=== PATIENT | male | born 1950 | race Caucasian/White ===

== ENCOUNTER → 2020-10-23 15:15 | Outpatient (CLI) | payer OTHER, SELFPAY ==
--- NOTE | ~2020-10-23 | XR_ITS ---
XR knee RT 2V DATE: 10/23/2020 15:28 INDICATION: Right knee pain TECHNIQUE: Standing AP and lateral views COMPARISON: None FINDINGS: There is moderate tricompartment osteoarthritis most prominent at the patellofemoral joint. No fracture or dislocation, periosteal reaction or bone destruction, radiopaque intra-articular loose body or chondrocalcinosis. Mild suprapatellar knee joint effusion is suggested. Arterial calcifications. Osteopenia. IMPRESSION: Tricompartment osteoarthritic, most prominent at the patellofemoral joint Mild knee joint effusion is suggested Osteopenia Reviewed, dictated and finalized at location A.
== END ==
PROVIDERS: PCP Emergency Medicine; Visit Provider Emergency Medicine
DX: M25.569 Pain in unspecified knee (principal); M17.11 Unilateral primary osteoarthritis, right knee; M25.461 Effusion, right knee; M85.861 Other specified disorders of bone density and structure, right lower leg
CPT/HCPCS: 73560

== ENCOUNTER 2020-11-21 08:00 | Outpatient (CLI) | payer OTHER, SELFPAY ==
[2020-11-21 09:33] LABS: Anion Gap 11 mmol/L (8-16); Blood Urea Nitrogen 15 mg/dL (9-20); Calcium 9.7 mg/dL (8.4-10.2); Carbon Dioxide 26 mmol/L (22-30); Chloride 103 mmol/L (98-107); Estimated Glomerular Filt Rate > 60; Glucose 105 mg/dL (75-110); Potassium 4.1 mmol/L (3.4-5.0); Sodium 140 mmol/L (137-145)
== END 2020-11-21 08:01 | disposition home or self-care (01) ==
LOC: ANHSURGERY 08:03
PROVIDERS: Anesthesiology; PCP Emergency Medicine; Visit Provider Surgery
DX: I10 Essential (primary) hypertension (principal); Z01.812 Encounter for preprocedural laboratory examination
CPT/HCPCS: 36415; 80048

== ENCOUNTER → 2020-11-28 02:15 | Outpatient (CLI) | payer OTHER, SELFPAY ==
[2020-11-29 14:40] LABS: SARS-CoV-2 RNA PCR Negative
== END ==
PROVIDERS: PCP Emergency Medicine; Visit Provider Surgery
DX: Z01.812 Encounter for preprocedural laboratory examination (principal); Z20.822 Contact with and (suspected) exposure to COVID-19
CPT/HCPCS: C9803; U0003; U0005

== ENCOUNTER 2020-12-01 01:51 | Day surgery (SDC) | payer OTHER, SELFPAY ==
[2020-11-13 14:49] VITALS: BMI 26.6
--- NOTE | 2020-11-30 12:19 | WPDANESEPPF ---
Anes - Initial Pre Proc Eval Procedure: Operation Date: 12/01/20 12:00 Proposed Procedures p Left Inguinal Hernia Repair - Alirio Lewis MD Date/Time: 11/30/20 12:19 Surgeon: Alirio Lewis MD Pre Op Diagnosis: left inguinal hernia Patient Data Age: 70 Gender: M Height: 1.75 m Weight: 81.65 kg Allergies Allergy/AdvReac Type Severity Reaction Status Date / Time No Known Allergies Allergy Verified 11/13/20 14:19 Home Medications Medication Instructions Recorded Confirmed Type ascorbic acid (vitamin C) 500 mg 500 mg PO BID 05/17/19 11/13/20 History tablet aspirin 325 mg tablet 325 mg PO DAILY tablet 05/17/19 11/13/20 History fklyqemxvsb-hpaaujgtm-hwc C-Mn 500 1 cap PO BID cap 05/17/19 11/13/20 History mg-400 mg capsule multivitamin 1 tablet PO .Daily with food 05/17/19 11/13/20 History tablet omega 6-abq-pwj-fish oil 100 1 cap PO BID cap 05/17/19 11/13/20 History mg-160 mg-1,000 mg capsule vitamin E 100 unit capsule 200 unit PO DAILY 05/17/19 11/13/20 History losartan 50 mg tablet 50 mg PO DAILY #90 tablet 05/10/20 11/13/20 Rx amlodipine 5 mg tablet See Rx Instructions .ROUTE 08/21/20 11/13/20 Rx .COMPLEX #90 tablet hydrochlorothiazide 25 mg tablet See Rx Instructions .ROUTE 08/21/20 11/13/20 Rx .COMPLEX #90 tablet alendronate 70 mg tablet See Rx Instructions .ROUTE 10/24/20 11/13/20 Rx .COMPLEX #12 tablet tamsulosin 0.4 mg capsule 0.4 mg PO DAILY #90 cap 10/27/20 11/13/20 Rx acetaminophen 500 mg PO BID PRN 11/13/20 11/13/20 History cholecalciferol (vitamin D3) 125 mcg PO DAILY 11/13/20 11/13/20 History magnesium gluconate 500 mg PO DAILY 11/13/20 11/13/20 History melatonin 5 mg PO HS PRN 11/13/20 11/13/20 History simvastatin 20 mg PO HS 11/13/20 11/13/20 History vitamin B complex [B Complex] 1 cap PO DAILY 11/13/20 11/13/20 History Patient hx anesthesia problems: none Family hx anesthesia problems: none [facility] Past Medical History Medical History (Updated 11/13/20 @ 10:24 by Meka Tilley) BPH (benign prostatic hyperplasia) CAD (coronary artery disease) HTN (hypertension) Hyperlipidemia Surgical History Surgical History (Updated 11/30/20 @ 12:19 by Mick Mckeon MD) History of heart bypass surgery S/P CABG (coronary artery bypass graft) S/P cervical discectomy S/P inguinal hernia repair Family History Family History Father Family history of cardiovascular disease, Onset Age: 77 Mother Family history of cardiovascular disease, Onset Age: 84 Unknown Heart disease Hypertension Social History Social History Smoking status: Never smoker Alcohol intake: never Living arrangements: with family Spiritual care concerns: No Anes - Eval Final PreProcedure Day of Procedure 11/30/20 12:19 Patient weight: overweight Heart: regular rate and rhythm Lungs: clear to auscultation and normal air movement Airway: Mallampati scale class II Neurological: alert and oriented Last oral intake: >/= 8 hours ASA classification: III Emergent: no Anesthetic plan: proceed Anesthesia type and monitoring: general GIVS and LMA Informed Consent: The patient's anesthetic plan and its attendant risks and benefits were discussed with the patient/family/POA. Questions were solicited and answers provided to the satisfaction of the patient/family/POA.
--- NOTE | 2020-12-01 06:50 | WPDHPUPDATE1 ---
History and Physical Update Update Date/Time: 12/01/20 06:50 History and Physical has been reviewed, including an updated exam of the patient. There are NO changes in the patient's condition. Risks, benefits, and alternatives have been discussed and questions answered. Patient agrees to proceed with procedure.
[2020-12-01 10:07] VITALS: BP 145/72; PULSE 59; RESP 18; TEMP 36.5; O2SAT 100
[2020-12-01] MEDS: KETOROLAC 15 MG/ML VIAL (*BKC) IV PUSH (10:57)
[2020-12-01] MEDS: LACTATED RINGERS 1,000 ML 30 ML IV CONT (10:57)
[2020-12-01] MEDS: ACETAMINOPHEN 500 MG TABLET 1000 MG PO (10:57)
[2020-12-01] MEDS: ceFAZolin 2 GM/D5W 50 ML 2 GM/50 ML BAG IVPB (11:05)
[2020-12-01] MEDS: BUPIVACAINE/EPINEPHRINE 0.5% 10 ML VIAL 30 ML INFILTRATE (11:05)
[2020-12-01 12:27] VITALS: BP 133/56; PULSE 62; RESP 14; O2SAT 98
[2020-12-01 12:55] VITALS: BP 118/52; PULSE 63; RESP 14
--- NOTE | 2020-12-01 12:59 | W.PM.PROC2 ---
Procedure Note - Detailed Date of Procedure 12/01/20 Pre-op Diagnosis left inguinal hernia Post-op Diagnosis same Procedure Performed Left inguinal hernia repair with 8 cm Parietex hernia mesh system Surgeon Alirio Lewis MD Independent Insurance Adjuster Bharati IBRAHIM, Misty IBRAHIM Anesthesia general (G IV S) and local (0.5% Marcaine with epinephrine) Indications Patient is a 70-year-old man who had a previous right inguinal hernia repair. He developed pain and a bulge in the left groin. He was noted to have a left inguinal hernia and is taken to surgery now for repair. Findings Showed a large direct inguinal hernia defect. Nearly the entire inguinal canal floor was involved in the hernia. Description of Procedure Patient was taken to surgery and IV sedation was administered. The left groin and genitalia were prepped and draped. The proposed incision was marked on the skin. Local was infiltrated into the skin and the deeper subcutaneous tissues. 0.5% Marcaine with epinephrine local was used. Incision was made dissection was carried down through the subcutaneous and through Micaela's fascia. Dissection was continued down to the external oblique aponeurosis. The aponeurosis and the external ring were exposed. Local was infiltrated deep to the aponeurosis in the area of the inguinal canal and spermatic cord. The aponeurosis was then opened laterally and extended medially through the external ring. Care was taken not to injure the ilioinguinal nerve which was left attached to the cord throughout the surgery. We mobilized the spermatic cord medially with a Vinod drain. The hernia was found and was carefully dissected free from the spermatic cord. Once it was completely freed from the cord, it was dissected circumferentially so that it was free of any other tissues in the inguinal canal. It was a very large defect, it occupied literally the entire direct space. I then scored circumferentially around the neck of the hernia through the transversalis fascia. This was about a cm from the origin of the hernia. I then dunked the hernia defect into the retroperitoneum. An 8 cm Parietex shingle springs was chosen. It was full to deform a plug. It was placed in the defect. The edges were sutured to the transversalis fascia with interrupted 3 0 Vicryl suture. Since the hernia was quite wide, I then went ahead and with 0 Ethibond interrupted sutures closed each edge of the transversalis fascia to the opposite side. Each of these sutures included the hernia mesh. This basically reconstructed the inguinal canal floor. I then cut the patch to the appropriate size and placed it over the inguinal canal floor. The lateral leaves were passed beyond the cord. I laid the cord and ileoinguinal nerve over the patch. The external oblique aponeurosis was then closed with interrupted 3 0 Vicryl suture. Micaela's fascia was closed with interrupted 3 0 Vicryl suture. The superficial subcutaneous was closed with 4 O Vicryl suture. The skin was loosely approximated with subcuticular interrupted 4 0 Vicryl suture. Finally the skin was closed with a running 4 0 Monocryl skin suture. Wound was dressed with Exofin surgical adhesive. The patient was awakened and taken to recovery in good condition. Estimated blood loss was 5 cc. Sponge and needle counts were correct x2. There were no complications. Implants 8 cm Parietex hernia mesh system Estimated Blood Loss 5 Drains No Packing No Pathology none sent Complications None Condition stable Disposition same day
[2020-12-01 13:15] VITALS: BP 144/72; PULSE 56; RESP 15
--- NOTE | 2020-12-01 13:34 | SUR.PHASEII ---
DR. HERNANDEZ IN TO SPEAK TO PATIENT AND SPOUSE. PT ABLE TO WALK WITHOUT DIFFICULTY.
== END 2020-12-01 13:36 | disposition home or self-care (01) ==
PROVIDERS: PCP Emergency Medicine; Visit Provider Surgery
PROC: (CPT 49505; principal; 2020-12-01 12:00)
DX: K40.90 Unilateral inguinal hernia, without obstruction or gangrene, not specified as recurrent (principal); Z79.82 Long term (current) use of aspirin; N40.0 Benign prostatic hyperplasia without lower urinary tract symptoms; I25.10 Atherosclerotic heart disease of native coronary artery without angina pectoris; E78.5 Hyperlipidemia, unspecified; Z95.1 Presence of aortocoronary bypass graft
CPT/HCPCS: 49505; 36415; 80048; A9270; C1781; C9803; J0690; J1885; J2704; J3010; J7120; U0003; U0005

== ENCOUNTER → 2021-04-03 09:32 | Outpatient (CLI) | payer OTHER, SELFPAY ==
--- NOTE | ~2021-04-03 | XR_ITS ---
EXAMINATION: XR shoulder LT min 2V DATE: 04/03/2021 09:46 INDICATION: Left shoulder pain. TECHNIQUE: 4 views of left shoulder were obtained. COMPARISON: None. FINDINGS: Bone alignment is normal. No fracture. There is mild osteoarthritis of glenohumeral joint a nd severe osteoarthritis of acromioclavicular joint. A calcified left lung nodule is consistent with old granulomatous disease. Median sternotomy wires and mediastinal surgical clips are seen, likely fr om prior coronary artery bypass grafting. IMPRESSION: 1. Polyarticular osteoarthritis. Reviewed, dictated and finalized at location A.
== END ==
PROVIDERS: PCP Emergency Medicine; Visit Provider Emergency Medicine
DX: M19.012 Primary osteoarthritis, left shoulder (principal)
CPT/HCPCS: 73030

== ENCOUNTER → 2022-04-19 09:42 | Outpatient (CLI) | payer OTHER, SELFPAY ==
--- NOTE | ~2022-04-19 | XR_ITS ---
EXAMINATION: XR elbow RT 2V INDICATION: Right elbow pain TECHNIQUE: Two views of the right elbow were obtained. COMPARISON: None available FINDINGS: No fracture, dislocation, or subluxation. The bones, soft tissues, and joint spaces are nor mal. IMPRESSION: 1. No acute osseous abnormality. Reviewed, dictated and finalized at location B. AL ASSOCIATE
== END ==
PROVIDERS: PCP Emergency Medicine; Visit Provider Emergency Medicine
DX: M25.521 Pain in right elbow (principal)
CPT/HCPCS: 73070

== ENCOUNTER 2022-05-07 01:41 | Day surgery (SDC) | payer OTHER, SELFPAY ==
[2022-03-14 13:45] VITALS: BMI 23.7
--- NOTE | 2022-03-31 09:17 | SUR.PREOP ---
PATIENT CALLED AT 917 AND INFORMED HIS CASE WOULD BE CANCELLED DUE TO DOCTOR'S AVAILABILITY. PATIENT VOICED UNDERSTANDING. INFORMED PATIENT TO NOT TAKE PREP AND THE OFFICE WOULD REACH OUT TOMORROW TO RESCHEDULE PATIENT.
[2022-05-07 06:23] VITALS: BP 123/66; PULSE 58; RESP 16; TEMP 36.3; O2SAT 98; BMI 25.2
[2022-05-07] MEDS: LACTATED RINGERS 1,000 ML 150 ML IV CONT (06:35)
--- NOTE | 2022-05-07 07:05 | WPDANESEPPF ---
Anes - Initial Pre Proc Eval Procedure: Operation Date: 05/07/22 07:30 Proposed Procedures p Screening Colonoscopy - Jeff Thapa MD Date/Time: 05/07/22 07:05 Surgeon: Jeff Thapa MD Pre Op Diagnosis: neoplasm screening Patient Data Age: 71 Gender: M Height: 1.78 m Weight: 80 kg Last Vital Signs Temp 36.3 C L 05/07/22 06:23 Pulse 58 L 05/07/22 06:23 Resp 16 05/07/22 06:23 BP 123/66 05/07/22 06:23 Pulse Ox 98 05/07/22 06:23 O2 Del Method Room Air 05/07/22 06:23 Allergies Allergy/AdvReac Type Severity Reaction Status Date / Time No Known Allergies Allergy Verified 05/07/22 06:20 Home Medications Medication Instructions Recorded Confirmed Type ascorbic acid (vitamin C) 500 mg 500 mg PO BID 05/17/19 05/07/22 History tablet (Vitamin C) aspirin 325 mg tablet 325 mg PO DAILY 05/17/19 05/07/22 History evzlmumdiyk-afympcpni-jqx C-Mn 500 1 cap PO BID 05/17/19 05/07/22 History mg-400 mg capsule (Glucosamine Chondroitin Maximum Strength) multivitamin 1 tablet PO .Daily with food 05/17/19 05/07/22 History omega 7-ciw-zrf-fish oil 100 1 cap PO BID 05/17/19 05/07/22 History mg-160 mg-1,000 mg capsule (Fish Oil) vitamin E 100 unit capsule 200 unit PO DAILY 05/17/19 05/07/22 History cholecalciferol (vitamin D3) 125 125 mcg PO DAILY 11/13/20 05/07/22 History mcg (5,000 unit) tablet magnesium gluconate 500 mg tablet 500 mg PO DAILY 11/13/20 05/07/22 History melatonin 5 mg tablet 5 mg PO HS PRN Insomnia 11/13/20 05/07/22 History vitamin B complex 1 cap PO DAILY 11/13/20 05/07/22 History amlodipine 5 mg tablet See Rx Instructions .Route 08/13/21 05/07/22 Rx .COMPLEX #90 tabs hydrochlorothiazide 25 mg tablet See Rx Instructions .Route 08/13/21 05/07/22 Rx .COMPLEX #90 tabs losartan 50 mg tablet 50 mg PO DAILY #90 tabs 08/27/21 05/07/22 Rx alendronate 70 mg tablet See Rx Instructions .Route 08/31/21 05/07/22 Rx .COMPLEX #12 tabs simvastatin 20 mg tablet 20 mg PO HS #90 tabs 02/06/22 05/07/22 Rx tamsulosin 0.4 mg capsule (Flomax) 0.4 mg PO DAILY #90 caps 04/12/22 05/07/22 Rx Patient hx anesthesia problems: none Family hx anesthesia problems: none Results Review: All pre-operative results and documents have been reviewed as part of the pre-operative evaluation. 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) Hernia of anterior abdominal wall HTN (hypertension) Hyperglycemia Hyperlipidemia Skin lesion Unilateral recurrent inguinal hernia without obstruction or gangrene Vitamin D deficiency Surgical History Surgical History History of heart bypass surgery S/P CABG (coronary artery bypass graft) S/P cervical discectomy S/P inguinal hernia repair 12/01/20 Left inguinal hernia repair with 8 cm Parietex hernia mesh system Family History Family History Father Family history of cardiovascular disease, Onset Age: 77 Mother Family history of cardiovascular disease, Onset Age: 84 Unknown Heart disease Hypertension Social History Social History Smoking status: Never smoker Alcohol intake: never Substance use type: does not use Living arrangements: with family Gender identity (if verbalized by the patient): Male Spiritual care concerns: No Anes - Eval Final PreProcedure Day of Procedure 05/07/22 07:05 Patient weight: normal Heart: regular rate and
--- NOTE | 2022-05-07 07:25 | PM.HPGS ---
History of Present Illness History of Present Illness Consent: Risks, benefits, and alternatives have been discussed and questions answered. Patient agrees to proceed with procedure. Chief complaint: neoplasm screening Narrative: Liam Floyd is a 71 year old male here for screening colonoscopy, last one 10 years ago Review of Systems Constitutional: Constitutional: Denies headache(s) and Denies weakness Eyes: Eyes: Denies blurry vision ENT: Reports Normal hearing present, Denies headache(s) and Denies neck pain Cardiovascular: Cardiovascular: Denies chest pain and Denies dyspnea Respiratory: Respiratory: Denies dyspnea Gastrointestinal: Gastrointestinal: Reports no additional gastrointestinal complaints Genitourinary: Genitourinary: Denies dysuria Musculoskeletal: Musculoskeletal: Denies neck pain Integumentary/Breasts: Skin/Breast: Denies dry skin Neurologic: Reports Normal hearing present, Denies headache(s) and Denies weakness Psychiatric: Psychiatric: Denies anxiety Endocrine: Endocrine: Denies change in body appearance Hematologic/Lymphatic: Hematologic/Lymphatic: Denies easy bleeding Allergic/Immunologic: Allergic/Immunologic: Denies urticaria PMF Past Medical History Medical History (Updated 05/07/22 @ 07:25 by Jeff Thapa MD) Anginal pain Back pain at L4-L5 level Body mass index [BMI] 28.0-28.9, adult (11/17/15) Body mass index [BMI] 29.0-29.9, adult (08/27/16) Body mass index [BMI] 30.0-30.9, adult (05/16/15) BPH (benign prostatic hyperplasia) CAD (coronary artery disease) Chest pain Colon cancer screening Compression fracture of L1 lumbar vertebra FERRER (dyspnea on exertion) Hernia of anterior abdominal wall HTN (hypertension) Hyperglycemia Hyperlipidemia Skin lesion Unilateral recurrent inguinal hernia without obstruction or gangrene Vitamin D deficiency Surgical History Surgical History History of heart bypass surgery S/P CABG (coronary artery bypass graft) S/P cervical discectomy S/P inguinal hernia repair 12/01/20 Left inguinal hernia repair with 8 cm Parietex hernia mesh system Family History Family History Father Family history of cardiovascular disease, Onset Age: 77 Mother Family history of cardiovascular disease, Onset Age: 84 Unknown Heart disease Hypertension Social History Social History Smoking status: Never smoker Alcohol intake: never Substance use type: does not use Living arrangements: with family Gender identity (if verbalized by the patient): Male Spiritual care concerns: No Meds Home Medications and Allergies Home Medications Medication Instructions Recorded Confirmed Type ascorbic acid (vitamin C) 500 mg 500 mg PO BID 05/17/19 05/07/22 History tablet (Vitamin C) aspirin 325 mg tablet 325 mg PO DAILY 05/17/19 05/07/22 History ddackhvqxhd-qhzoskpoc-jkw C-Mn 500 1 cap PO BID 05/17/19 05/07/22 History mg-400 mg capsule (Glucosamine Chondroitin Maximum Strength) multivitamin 1 tablet PO .Daily with food 05/17/19 05/07/22 History omega 9-ixo-tnc-fish oil 100 1 cap PO BID 05/17/19 05/07/22 History mg-160 mg-1,000 mg capsule (Fish Oil) vitamin E 100 unit capsule 200 unit PO DAILY 05/17/19 05/07/22 History cholecalciferol (vitamin D3) 125 125 mcg PO DAILY 11/13/20 05/07/22 History mcg (5,000 unit) tablet magnesium gluconate 500 mg tablet 500 mg PO DAILY 11/13/20 05/07/22 History melatonin 5 mg tablet 5 mg PO HS PRN Insomnia 11/13/20 05/07/22 History vitamin B complex 1 cap PO DAILY 11/13/20 05/07/22 History amlodipine 5 mg tablet See Rx Instructions .Route 08/13/21 05/07/22 Rx .COMPLEX #90 tabs hydrochlorothiazide 25 mg tablet See Rx Instructions .Route 08/13/21 05/07/22 Rx .COMPLEX #90 tabs losartan 50 mg
[2022-05-07 07:41] VITALS: BP 105/65; PULSE 63; RESP 17; O2SAT 98
[2022-05-07 07:51] VITALS: BP 118/69; PULSE 62; RESP 16; O2SAT 98
[2022-05-07 08:01] VITALS: BP 128/74; PULSE 62; RESP 17; O2SAT 98
== END 2022-05-07 08:02 | disposition home or self-care (01) ==
PROVIDERS: PCP Emergency Medicine; Visit Provider Internal Medicine Gastroenterology
PROC: 0DJD8ZZ Inspection of Lower Intestinal Tract, Via Natural or Artificial Opening Endoscopic (ICD-10-PCS; CPT 45378; principal; 2022-05-07 07:30)
DX: Z12.11 Encounter for screening for malignant neoplasm of colon (principal); K64.8 Other hemorrhoids; I25.10 Atherosclerotic heart disease of native coronary artery without angina pectoris; I10 Essential (primary) hypertension; E78.5 Hyperlipidemia, unspecified; E55.9 Vitamin D deficiency, unspecified; N40.0 Benign prostatic hyperplasia without lower urinary tract symptoms; Z95.1 Presence of aortocoronary bypass graft; Z79.82 Long term (current) use of aspirin
CPT/HCPCS: G0121; J2704; J7120

== ENCOUNTER → 2023-05-08 10:02 | Outpatient (CLI) | payer OTHER, SELFPAY ==
--- NOTE | ~2023-05-08 | XR_ITS ---
Right Hand Technique: PA and lateral views were obtained. Clinical History: Pain Findings: No acute fracture or dislocation is seen. There is moderate degenerative change at the seco nd and third metacarpophalangeal joints. Soft tissues are unremarkable. Impression: Moderate degenerative change of the second and third metacarpophalangeal joints. Reviewed, dictated and finalized at location . 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
== END ==
PROVIDERS: PCP Emergency Medicine; Visit Provider Emergency Medicine
DX: M19.041 Primary osteoarthritis, right hand (principal)
CPT/HCPCS: 73120

== ENCOUNTER 2024-05-05 12:13 | Outpatient (CLI) | payer OTHER, SELFPAY ==
--- NOTE | ~2024-05-05 | XR_ITS ---
XR hip LT min 2V 05/05/2024 12:24 Indication: Left hip pain Procedure: 2 views left hip Comparison: No prior studies for comparison. Findings: Mild-moderate osteoarthritis of the left hip. No fracture, subluxation or dislocation. No s ignificant soft tissue abnormality. No foreign bodies. Impression: 1: Mild-moderate osteoarthritis of the left hip. Reviewed, dictated and finalized at location B. 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
== END 2024-05-05 12:14 | disposition home or self-care (01) ==
LOC: MICIMG 12:14
PROVIDERS: PCP Emergency Medicine; Visit Provider Emergency Medicine
DX: M16.12 Unilateral primary osteoarthritis, left hip (principal)
CPT/HCPCS: 73502

== ENCOUNTER 2024-10-12 09:51 | Outpatient (CLI) | payer OTHER, SELFPAY ==
--- NOTE | ~2024-10-12 | XR_ITS ---
AP and lateral views of the right hip Clinical history: Pain Findings: No acute fracture or dislocation is seen. Osseous alignment is anatomic. Right hip joint sp yoyn is intact. Soft tissues are unremarkable. Impression: No significant abnormality is seen. Reviewed, dictated and finalized at location . Impression: No significant abnormality is seen.
== END 2024-10-12 09:52 | disposition home or self-care (01) ==
LOC: MICIMG 09:52
PROVIDERS: PCP Emergency Medicine; Visit Provider Emergency Medicine
DX: M25.551 Pain in right hip (principal)
CPT/HCPCS: 73502

== ENCOUNTER 2025-01-27 14:00 | Outpatient (RCR) | payer OTHER, SELFPAY ==
--- NOTE | 2024-12-27 14:37 | OPREHPOC ---
Outpatient Therapy Plan of Care This is a Multidisciplinary Plan of Care that may contain components documented by all disciplines (PT, OT, and ST.) PT Problem 1 PT Problem #1 Knowledge Deficit PT Goal 1 Goal / Goal Update 1* independent with HEP 2* correct body mechanics with lifting from the floor Target Visit 8 PT Problem 2 PT Problem #2 Pain PT Goal 1 Goal / Goal Update 1* pt report pain rating at worst of 4/10 2* radicular pain to bilateral lateral hips at worst 3* pt report sit to stand without pain increase Target Visit 8 PT Problem 3 PT Problem #3 Impaired Flexibility PT Goal 1 Goal / Goal Update increase flexibility to decrease the pull on hips and lumbar spine: hamstring length with supine SLR to 60' 1* R 2* L anterior hip-quad length with prone knee flexion 3* R 105' 4* L 120' 5* in long sitting position R knee extension 0' Target Visit 8 PT Problem 4 PT Problem #4 Impaired Strength PT Goal 1 Goal / Goal Update 1improve strength of bilateral hip extension and abduction to 4+/5 single leg standing x 10 seconds with good stability: 2* R 3* L Target Visit 8
--- NOTE | 2024-12-27 14:38 | PTOPEVAL1 ---
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; active lifestyle; walk 2 + miles/day; light running with dog training; weight training for arms and legs & cardio s/p cardiac rehab Reported Pain Level Pain Score 0: Self Report Additional Pain Score Comments pain range in the past week 0-7/10; radicular R and L lateral thigh to mid thigh increase pain: driving, sit to stand transfer; when first wake up in AM decrease pain: change positions, stretch hip, over the counter meds/tylenol, advil sleeping pain with changing positions, about 2 x/ night Assessment PT Clinical Summary Liam has the diagnosis of lumbar radiculopathy, trochanteric bursitis bilateral. He has a chronic history of back pain, with 2018 MRI report stating changes and recent hip xray report states mild to moderate changes. 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 Self assessment with Back Index rating of 34% limitation in activity level. He has received chiropractor care for back pain and continues to go 1x/month, but has never had PT treatments. Medical history includes: R knee arthritis, bilateral inguinal hernia surgery and HTN, CABG. With the evaluation: he has tightness of anterior hip-quad, piriformis, hamstrings and hip IR; R knee extension is (-5'), imbalance of R hip tighter than L; standing with R hip and knee slightly flexed with spinal change of position. Skilled PT services are indicated for modalities PRN for pain control; therapeutic exercises to increase flexibility and strength of hips, with education for HEP, body mechanics. Plan of Care Interventions Electrical Stimulation,Hot Pack/Cold Pack,Manual Therapy,Neuro Re-education,Patient/Caregiver Education,Therapeutic Activities,Therapeutic Exercise,Ultrasound,Other Other Interventions taping PT Services Indicated Yes Treatment Frequency and 1-2x/wk for 8 visitis Duration These treatments will address the objective and functional deficits as defined above. The patient will be advanced safely and appropriately in order for the patient to progress towards his/her prior level of function. Additional exercises will be introduced and as well as a comprehensive home exercise program upon discharge, if needed, ?to ensure carryover of functional gains achieved in the clinic. This treatment plan has been reviewed and agreement upon by the patient.
--- NOTE | 2025-01-27 14:52 | OPREHPOC ---
Outpatient Therapy Plan of Care This is a Multidisciplinary Plan of Care that may contain components documented by all disciplines (PT, OT, and ST.) PT Problem 1 PT Problem #1 Knowledge Deficit PT Goal 1 Goal / Goal Update 1* independent with HEP 2* correct body mechanics with lifting from the floor 01-27-25 d/c goal met Target Visit 8 Progress Met PT Problem 2 PT Problem #2 Pain PT Goal 1 Goal / Goal Update 1* pt report pain rating at worst of 4/10 2* radicular pain to bilateral lateral hips at worst 3* pt report sit to stand without pain increase 01-27-25 d/c goal 1 met; #2 met for R LE; #3 has pain with sit to stand Target Visit 8 Progress Partially Met PT Problem 3 PT Problem #3 Impaired Flexibility PT Goal 1 Goal / Goal Update increase flexibility to decrease the pull on hips and lumbar spine: hamstring length with supine SLR to 60' 1* R 2* L anterior hip-quad length with prone knee flexion 3* R 105' 4* L 120' 5* in long sitting position R knee extension 0' 01-27-25 d/c goal 2,3,5 met Target Visit 8 Progress Partially Met PT Problem 4 PT Problem #4 Impaired Strength PT Goal 1 Goal / Goal Update 1improve strength of bilateral hip extension and abduction to 4+/5 single leg standing x 10 seconds with good stability: 2* R 3* L 01-27-25 d/c goals not met Target Visit 8 Progress Not Met
--- NOTE | 2025-01-27 14:52 | PTOPDC ---
Assessment and note entered by Marjorie Young, PT Assessment Status Discharge ICD-10 Condition Codes (PT) Radiculopathy, lumbar region M54.16,Pain in right hip M25.551,Pain in left hip M25.552 Onset March 2024 Subjective Information feel like doing marginally better, not sure my hips are that much better; have been doing the exercises; ready to be finished with PT; will call dr and set up a follow up appointment. Reported Pain Level Pain Score Self Report Additional Pain Score Comments pain range in the past week 0-4/10; L lateral hip and into lateral thigh to above knee- intermittent increase pain: sit to stand, stairs, driving over 45 minutes decrease pain: walk, change positions sleeping- no awakening due to pain is doing everything he needs to do, but needs to change positions and rest sometimes Assessment PT Clinical Summary Liam has received 8 PT sessions. Compared to the initial evaluation: pain rating from 0-7/10 to 0-4/10; self assessment with back index rating from 34 to 20% limitation in activity level; reported is not awakening from sleep due to pain; pain is intermittent into L lateral mid thigh/ no radicular pain R LE; pain is increased with sit to stand transfer and sitting in the car and driving over 45 minutes; increase strength of hips, but continues to have weakness L hip abduction and extension; tightness and muscle imbalance over R and L hamstrings and anterior hip -quad muscles. Education completed for HEP and body mechanics/posture. The goals were partially achieved. Discharge PT services. He is to continue with his HEP and follow up with . Plan of Care PT Services Indicated No
== END 2025-01-28 09:33 | disposition home or self-care (01) ==
LOC: ANHPT 14:00
PROVIDERS: PCP Emergency Medicine; Visit Provider Orthopaedic Surgery
DX: M47.816 Spondylosis without myelopathy or radiculopathy, lumbar region (principal)
CPT/HCPCS: 97110; 97140; 97161; 97530

== ENCOUNTER 2025-06-07 07:43 | Outpatient (CLI) | payer OTHER, SELFPAY ==
--- NOTE | ~2025-06-07 | MR_ITS ---
EXAMINATION: MR lumbar spine wo/w con DATE: 06/07/2025 08:37 INDICATION: Spondylosis without myelopathy or radiculopathy. TECHNIQUE: Magnetic resonance imaging (MRI) of the lumbar spine was performed without and with 17 mL MultiHance intravenous contrast. COMPARISON: Lumbar spine MRI 07/03/2017 FINDINGS: There is 28 degrees dextroscoliosis of thoracolumbar spine. There is 3 mm retrolisthesis of T12 on L1 and L1 on L2. There is chronic height loss of L1 vertebral body. There is moderately decreased disc height at T12-L1, severely decreased disc height at L1-L2, moderately decreased disc height at L2-L3 and L3-L4, and severely decreased disc height at L4-L5 and L5-S1. The distal spinal cord signal intensity is normal. The conus medullaris is at L1. The following disc levels are specifically discussed: L1-L2: The disc is bulging and has an annular fissure. There is severe bilateral facet joint osteoarthritis. There is mild right and moderate left neural foraminal stenosis. There is mild central canal stenosis. L2-L3: The disc is bulging and has an annular fissure. There is severe bilateral facet joint osteoarthritis. There is mild right and moderate left neural foraminal stenosis. There is moderate central canal stenosis. L3-L4: The disc is bulging and has an annular fissure. There is severe bilateral facet joint osteoarthritis. There is moderate bilateral neural foraminal stenosis. There is mild central canal stenosis. L4-L5: The disc is bulging and has an annular fissure. There is severe bilateral facet joint osteoarthritis. There is moderate bilateral neural foraminal stenosis. There is mild central canal stenosis. L5-S1: The disc is bulging and has an annular fissure. There is severe bilateral facet joint osteoarthritis. There is moderate bilateral neural foraminal stenosis. There is mild central canal stenosis. IMPRESSION: 1. Severe lumbar spondylosis, slightly worsened from 07/03/2017. 2. Thoracolumbar dextroscoliosis. Reviewed, dictated and finalized at location E. A SALES CONSULTANT
--- OUTSIDE RECORDS SUMMARY | 2025-06-07 07:47 | XMS_ITS | Clinical Summary ---
Author Organization [facility] Address [address] [place] [address] Care Team Providers Care Tele Tech Name Role Phone Scotty Jamison MD Primary Care Provider [phone] Source Comments [facility],non-owned Affiliates and Associated Physician Practices is amultiple site organization consisting of ambulatory clinics and hospital sitesin [place], [place], [place] and [place]. This disclosure is being madepursuant to the Care Everywhere program and may not contain all information available regarding this patient. Last updated 18.[facility] Allergies No known active allergies Medications * Be aware that medications may not be up to date on this document. Alwaysverify current medications with the patient. amLODIPine (NORVASC) 10 MG tablet 05/13/2017 Active hydroCHLOROthia zide (HYDRODIURIL) 25 MG tablet 05/05/2017 Active simvastatin (ZOCOR) 20 MG tablet 06/17/2017 Active Multiple Vitamin Take 1 (one) tablet by mouth DAILY 07/15/2017 Active [place]-3 Fatty Acids (FISH OIL) 500 MG capsule Take 500 (five hundred) mg by mouth BID 07/15/2017 Active losartan (COZAAR) 100 MG tablet 04/24/2017 Active vitamin D3 (CHOLECALCIFERO L) (25 MCG) 1000 UNIT capsule Take 1 (one) capsule by mouth once daily Active magnesium gluconate (MAGTRATE) 500 MG tablet Take 1 (one) tablet by mouth once daily Active melatonin 5 MG tablet Take 1 (one) tablet by mouth once daily Active vitamin E (TOCOPHERYL) 200 UNIT capsule Take 1 (one) capsule by mouth once daily Active tamsulosin (Flomax) 0.4 MG capsule Take 1 (one) capsule by mouth once daily Active alendronate (Fosamax) 70 MG tablet Take 1 (one) tablet by mouth every 7 days Active ascorbic acid (Vitamin C) 500 MG tablet Take 2 (two) tablets by mouth once daily Active diclofenac sodium (Voltaren) 1 % gel APPLY 2 GMS 4 TIMES DAILY TO AFFECTED AREA 11/06/2023 Active meloxicam (Mobic) 7.5 MG tablet Take 1 (one) tablet by mouth once daily 11/05/2023 Active oxyBUTYnin (Ditropan) 5 MG tablet Take 1 (one) tablet by mouth at bedtime 10/17/2022 Active clobetasol (Temovate) 0.05 % solutionIndicat ions:Other seborrheic dermatitis Apply to scalp twice daily as needed. 30 days supply. 25 mL 11 11/16/2024 Active ketoconazole (Nizoral) 2 % shampooIndicati ons:Other seborrheic dermatitis Apply to scalp three times weekly. Leave on three minutes before rinsing. 30 day supply 120 mL 11/16/2024 Active Active Problems Problem Noted Date Diagnosed Date Actinic keratosis 07/10/2022 Other seborrheic dermatitis 07/10/2022 Seborrheic keratoses 07/10/2022 Lentigines 07/10/2022 Multiple benign melanocytic nevi of upper and lower extremities and trunk 07/10/2022 Immunizations Immunization Administration Dates Next Due INFLUENZA VACCINE 03/31/2022,03/08/2021 INFLUENZA VACCINE, ADJUVANTE D, TRIV. 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 Gender Identity Not on file Sexual Orientation Not on file Plan of Treatment Upcoming Encounters Date Type Department Care Team (Late st Contact Info) Description 11/22/2025 3:20 PM CDT Office Visit [facility] - Dermatology [address] [place] [address], [facility] [place] [address] Iglesia Tobar MD [address] [facility] [address] [place] [address] Health Maintenance Due Date Last Done Comments COLOGUARD (AGES 45-75) - COL ON CA SCREENING 1950 COLON MONITORING 1950 COLONOSCOPY - COLON CA SCREENING 1950 CT COLONOGRAPHY - COLON CA SCREENING 1950 Colorectal Cancer Screening 1950 FIT - COLON CA SCREENING 1950 FLEX SIG - COLON CA SCREENING 1950 MEDICARE AWV 12 MONTHS 1950 HEPATITIS C SCREENING 05/18/1968 DTAP/TDAP/TD VACCINES (1 - Tdap) 1969 ZOSTER VACCINE (1 of 2) 2000 PNEUMOCOCCAL VACCINE 50+ (2 of 2 - PCV20 or PCV21) 12/17/2019 12/16/2018 DEPRESSION SCREENING 06/09/2024 COVID-19 VACCINE ( - 2024-2 6 season) 2025 INFLUENZA VACCINE (#1) 2025 2, 03/08/2021, 03/24/2019 Respiratory Syncytial Virus (RSV) Vaccine Pt: or over 60 yrs (1 - 1-dose 75+ series) 2025 HEPATITIS B VACCINE Aged Out No longe r eligible based on patient's age to complete this topic HIB VACCINE Aged Out No longer eligi ble based on patient's age to complete this topic HPV VACCINE Aged Out No longer eligi ble based on patient's age to complete this topic MENINGOCOCCAL (Group B) VACCINE SHARED DECISION-MAKING Aged Out No longer eligible based on patient's age to complete this topic MENINGOCOCCAL GROUPS A/C/Y/W VACCINE Aged Out No longer eligible b ased on patient's age to complete this topic Insurance [employer] Care Teams Tele Tech Relationship Specialty Start Date End Date Scotty Jamison MD [address] [place] [id number] PCP - General 07/09/17
--- OUTSIDE RECORDS SUMMARY | 2025-06-07 07:47 | XMS_ITS | Encounter Summary ---
Author Organization [facility] Healthcare Address [facility] [place] [address] Care Team Providers Care Fact Checker Name Role Phone Scotty Jamison MD Primary Care Provide r Encounter Details Date Type Department Care Team (Late st Contact Info) Description 10/06/2017 Orders Only [facility] Health Information Management [address] [place] [id number] Scanning, Provider Social History Tobacco Use Types Packs/Day Years Used Date Smoking Tobacco: Never Smokeless Tobacco: Never Alcohol Use Standard Drinks/Week Comments No 0 (1 standard drink = 0.6 oz pur e alcohol) Sex and Gender Information Value Date Recorded Sex Assigned at Male 09/07/2018 10:46 AM CDT Legal Sex Male 2:45 PM CDT Gender Identity Male 09/07/2018 10:46 AM CDT Sexual Orientation Straight 09/07/2018 10 :46 AM CDT documented as of this encounter Plan of Treatment Not on file documented as of this encounter Procedures Procedure Name Priority Date/Time Associated Diagnosis Comments SCAN - LABS 10/06/2017 CARDIOLOGY DOCUMENT SCAN 10/06/2017 documented in this encounter Results * SCAN - LABS (10/06/2017) us Provider Scanning Final Result * Cardiology Document Scan (10/06/2017) Anatomical Region Laterality Modality Other us Provider Scanning CV CARDIAC SERVICES PROCEDURES Final Result documented in this encounter Visit Diagnoses Not on filedocumented in this encounter Care Teams Fact Checker Relationship Specialty Start Date End Date Scotty Jamison MD [address] [place] [address] PCP - General Emergency Medicine 03/13/17 documented as of this encounter
--- OUTSIDE RECORDS SUMMARY | 2025-06-07 07:47 | XMS_ITS | Clinical Summary ---
Author Organization [facility] [address] Address [address] [place] [address] Care Team Providers Care Rubber Moulding Machine Operator Name Role Phone Scotty Jamison MD Primary Care Provide r Allergies No known active allergies Medications alendronate (FOSAMAX) 70 mg tablet Take 1 tablet (70 mg total) by mouth every 7 days Take in the morning with a full glass of water, on an empty stomach, and do not take anything else by mouth or lie down for the next 30 min. Active echinacea 400 mg capsule Take by mouth. Active fish oil-dha-epa 1,200-144-216 mg capsule Take 2 tablets by mouth daily. Active GLUCOSAMINE/CHO NDR KEVIN A SOD (GLUCOSAMINE-CH ONDROITIN) 1,500-1,200 mg/30 mL liquid Take 1 tablet by mouth 2 (two) times a day Active ascorbic acid (VITAMIN C) 500 mg tablet,chewable Take 2 tablet/chew tab (1,000 mg total) by mouth daily Active multivitamin capsule Take 1 capsule by mouth daily Active B bblz-A-shleh wbml-dvxy02-wle 30-400-80 unit-mcg-mg tablet Take 1 Caplet by mouth daily. Active losartan (COZAAR) 100 mg tablet Take 0.5 tablets (50 mg total) by mouth daily. 10/27/2017 Active aspirin 325 mg tablet Take 1 tablet (325 mg total) by mouth daily. 10/28/2017 Active amLODIPine (NORVASC) 10 mg tablet Take 0.5 tablets (5 mg total) by mouth daily. 10/27/2017 Active hydroCHLOROthia zide (HYDRODIURIL) 25 mg tablet Take 1 tablet (25 mg total) by mouth daily 09/06/2018 Active vitamin E (AQUASOL E) 200 unit capsule Take 1 capsule (200 Units total) by mouth daily Active cholecalciferol (VITAMIN D-3) 1,000 unit Take 1 tablet/capsul e (1,000 Units total) by mouth daily Active magnesium gluconate (MAGONATE) 27.5 mg magne- sium (500 mg) tabletIndicatio ns:hypomagnesem ia Take 1 tablet (500 mg total) by mouth daily Active melatonin 5 mg tablet Take 1 tablet (5 mg total) by mouth nightly Active simvastatin (ZOCOR) 20 mg tablet 08/26/2020 Active tamsulosin (FLOMAX) 0.4 mg extended release capsule Take 1 capsule (0.4 mg total) by mouth daily Active oxyBUTYnin (DITROPAN) 5 mg tablet Take 1 tablet (5 mg total) by mouth nightly 10/17/2022 Active meloxicam (MOBIC) 7.5 mg tablet Take 1 tablet (7.5 mg total) by mouth daily 11/05/2023 Active diclofenac sodium (VOLTAREN) 1 % gel APPLY 2 GMS 4 TIMES DAILY TO AFFECTED AREA 11/06/2023 Active ketoconazole (NIZORAL) 2 % shampoo APPLY TO SCALP NIGHTLY. LEAVE ON THREE MINUTES BEFORE RINSING. 30 DAY SUPPLY 04/01/2024 Active Active Problems Problem Noted Date Diagnosed Date Hx of CABG 12/16/2017 Aftercare following surgery of the circulatory s ystem 12/02/2017 Coronary artery disease of n ative artery of [place] heart with stable angina pectoris 10/13/2017 Other chest pain 08/28/2017 Surgical History Surgery Date Site/Laterality Comments POSTERIOR LAMINECTOMY / DECOMPRESSION CERVICAL SPINE 2001 and 2003 HERNIA REPAIR 06/09/1997 - 06/08/1998 CORONARY ARTERY BYPASS GRAFT 10/23/2017 CABG X 2 CORONARY ARTERY BYPASS GRAFT Medical History Medical History Date Comments Hypertension Hyperlipidemia Coronary artery disease Family History Medical History Relation Name Comments Heart disease Father Reji Garza Kidney failure Father Reji Garza Early Father's Brother Ronni Everett Heart attack Mother Thuy Oneillshelby Garza Relation Name Status Comments Father Reji Garza Father's Brother Ronni Garza Alive Mother Thuy Garza Social History Tobacco Use Types Packs/Day Years Used Date Smoking Tobacco: Never Smokeless Tobacco: Never Tobacco Cessation:Counseling Given: Not Answered Alcohol Use Standard Drinks/Week Comments No 0 (1 standard drink = 0.6 oz pur e alcohol) AUDIT-C Answer Date Recorded Q1: How often do you have a drink containing alc ohol? Never 05/17/2024 Average Number of Drinks Not on file 024 Frequency of Binge Drinking Not on file 02/2024 PHQ-2 Answer Date Recorded PHQ-2 Total Score (If total score is 3 or more points, staff should administer the PHQ-9) 0 09/14/2019 Sex and Gender Information Value Date Recorded Sex Assigned at Male 09/07/2018 10:46 AM CDT Legal Sex Male 2:45 PM CDT Gender Identity Male 09/07/2018 10:46 AM CDT Sexual Orientation Straight 09/07/2018 10 :46 AM CDT Last Filed Vital Signs Vital Sign Reading Time Taken Comments Blood Pressure 138/80 11/23/2024 9:14 AM CDT Pulse 53 11/23/2024 9:14 AM CDT Temperature 36.3 C (97.3 F) 05/17/2024 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 Respiratory Rate 20 05/17/2024 12:23 PM DELIVERY DRIVER/SUPERVISOR Oxygen Saturation 94% 11/23/2024 9:14 AM CDT Inhaled Oxygen Concentration - - Weight 83.9 kg (185 lb) 11/23/2024 9:14 AM CDT Height 175.3 cm (5' 9) 11/23/2024 9:14 AM CDT Body Mass Index 27.32 11/23/2024 9:14 AM CDT Plan of Treatment Health Maintenance Due Date Last Done Comments Colon Cancer Screening-Colonoscopy 1950 Hepatitis C Screening 1950 DTaP/Tdap/Td Vaccine (1 - Tdap) 1961 Hepatitis B Screening 1968 Well Visit 65+ 2015 Zoster Vaccine (2 of 3) 05/25/2015 03/30/2015 Depression Screening 09/13/2020 09/14/2019 Influenza Vaccine (#1) 2025 2, 03/08/2021, 02/10/2020, Additional history exists Fall Risk Assessment 05/17/2025 05/17/2024, 07/23/2021, 01/15/2018, Additional history exists Pneumococcal vaccine 65+ Completed 01/04/2020, 12/07 Goals Goal Patient Goal Type Associated Problems Recent Progress Patient-Stated? Author CCM Chronic Pain Care Plan Chronic Care Management Yes Sheri Candelaria, RN Note: Problem: Chronic Pain Goals: 1. Minimize further functional decline 2. Maximize quality of life 3. Control pain Strategies: - Activity/exercise program recommendation - Conservative stepwise pain medicine strategy with multi-disciplinary approach - Recommend healthy lifestyle strategies and compensatory methods as needed Reduce the likelihood of falling Lifestyle No Camilla Estes Note: Below are four things you can do to prevent falls: 1. Begin an exercise program to improve your leg strength & balance 2. Ask your doctor or pharmacist to review your medicines 3. Get annual eye check-ups & update your eyeglasses 4. Make your home safer by: Removing clutter & tripping hazards Putting railings on all stairs & adding grab bars in the bathroom Having good lighting, especially on stairs Contact your local community or senior center for information on exercise, fall prevention programs, or options for improving home safety. Insurance [facility] Advance Directives For more information, please contact: [phone] Documents on File Type Date Recorded Patient Medical Language Specialist Expl anation ADVANCE DIRECTIVE 10/23/2017 5:48 AM ADVANCE DIRECTIVE 10/23/2017 Advance Di rective Checklist * Full Code (Latest Code Status on File) Date Activated Date Inactivated Comments 10/23/2017 12:36 PM 10/27/2017 3:24 PM Care Teams Rubber Moulding Machine Operator Relationship Specialty Start Date End Date Scotty Jamison MD [address] [place] [address] PCP - General Emergency Medicine 03/13/17
--- OUTSIDE RECORDS SUMMARY | 2025-06-07 07:47 | XMS_ITS | Clinical Summary ---
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 Pulse 80 04/14/2015 9:43 AM CAFETERIA AIDE Temperature - - Respiratory Rate - - Oxygen Saturation - - Inhaled Oxygen Concentration - - Weight 90.7 kg (200 lb) 04/14/2015 9:43 AM CAFETERIA AIDE Height 172.7 cm (5' 8) 04/14/2015 9:43 AM CAFETERIA AIDE Body Mass Index 30.41 04/14/2015 9:43 AM CAFETERIA AIDE Plan of Treatment Health Maintenance Due Date Last Done Comments Hepatitis C 1968 Pneumococcal Vaccine: 50+ Years (1 of 1 - PCV) 2000 Zoster Vaccines (1 of 2) 2000 DTaP, Tdap and Td Vaccines ( 2 - Td or Tdap) 07/17/2019 07/17/2009 Colorectal Cancer Screening Colonoscopy (10 Years) 11/07/2022 11/07/2012 COVID-19 Vaccine ( - 2024-2 6 season) 2025 Influenza Adult (#1) 2025 04/12/2014, 04/07/2013, 03/03/2012 RSV Immunization or 60+ Years (1 - 1-dose 75+ series) 2025 Hepatitis A Vaccines Aged Out No long er eligible based on patient's age to complete this topic Meningococcal B Vaccine Aged Out No l onger eligible based on patient's age to complete this topic Meningococcal Vaccine Aged Out No cleo lynnette eligible based on patient's age to complete this topic RSV Immunizations Under 20 Months Aged Out No longer eligible b ased on patient's age to complete this topic Procedures Procedure Name Priority Date/Time Associated Diagnosis Comments COLONOSCOPY Routine 11/07/2012 12:00 AM CDT from Last 3 Months or Most Recently Relevant to Health Maintenance Results * Colonoscopy (11/07/2012 12:00 AM CDT) 11/07/2012 11/07/2012 Narrative TOUCHWORKS TO EPIC CONVERSION - 11/07/2012 12:00 AM CDT Documented hx of procedure Procedure Note , Generic Conversion, - 08/27/2018 Documented hx of procedure us Generic Conversion Md [facility] PROCEDURE ORDERABLES Final Result TOUCHWORKS TO EPIC CONVERSION from Last 3 Months or Most Recently Relevant to Health Maintenance
== END 2025-06-07 07:44 | disposition home or self-care (01) ==
PROVIDERS: PCP Emergency Medicine; Visit Provider Emergency Medicine
DX: M47.816 Spondylosis without myelopathy or radiculopathy, lumbar region (principal); M41.85 Other forms of scoliosis, thoracolumbar region
CPT/HCPCS: 72158; A9577